=== PATIENT | female | born 2000 | race Caucasian/White ===

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

== ENCOUNTER 2021-07-11 14:51 | Emergency (ER) | payer OTHER ==
[~2021-07-11] VITALS: Ht 162.6 cm; Wt 47.6 kg
[2021-07-11] MEDS ORDERED: SYNTHROID50 MCG (16:02)
== END 2021-07-11 23:05 | disposition home or self-care (01) ==
LOC: ER 14:51
DX: R10.2 Pelvic and perineal pain (principal); O26.892 Other specified pregnancy related conditions, second trimester; Z3A.17 17 weeks gestation of pregnancy

== ENCOUNTER 2021-07-30 21:25 | Outpatient (CLI) | payer OTHER ==
[~2021-07-30 21:25] MED LIST changes: +SYNTHROID50 MCG
== END 2021-07-31 13:12 | disposition home or self-care (01) ==
LOC: OBS/DEL 21:25
PROVIDERS: ATTEND Obstetrics & Gynecology
DX: O26.892 Other specified pregnancy related conditions, second trimester (principal); R10.2 Pelvic and perineal pain; Z3A.20 20 weeks gestation of pregnancy

== ENCOUNTER 2021-10-12 02:04 | Inpatient (IN) | payer OTHER ==
[~2021-10-12] VITALS: Ht 162.6 cm; Wt 53.5 kg
[2021-10-12] MEDS ORDERED: PROGESTERO50 MG/1 ML IM (11:04)
== END 2021-10-27 20:08 | disposition home or self-care (01) | DRG 776 ==
LOC: OBS/DEL 02:04 → LDR 22:53 → OB/GYN 10-20 10:52
PROVIDERS: ADMIT Obstetrics & Gynecology; ATTEND Obstetrics & Gynecology
PROC: 4A1HXCZ Monitoring of Products of Conception, Cardiac Rate, External Approach (ICD-10-PCS; principal; 2021-10-12)
DX: O99.13 Other diseases of the blood and blood-forming organs and certain disorders involving the immune mechanism complicating the puerperium (principal); O34.33 Maternal care for cervical incompetence, third trimester; Z3A.30 30 weeks gestation of pregnancy; Z20.822 Contact with and (suspected) exposure to COVID-19; O26.893 Other specified pregnancy related conditions, third trimester; R10.2 Pelvic and perineal pain

== ENCOUNTER 2021-11-26 20:50 | Inpatient (IN) | payer OTHER ==
[~2021-11-26] VITALS: Ht 162.6 cm; Wt 57.6 kg
[~2021-11-26 20:50] MED LIST changes: +PROGESTERO50 MG/1 ML IM
[2021-11-26] MEDS ORDERED: SYNTHROID75 MCG (21:09)
== END 2021-12-03 13:26 | disposition home or self-care (01) | DRG 768 ==
LOC: OBS/DEL 20:50 → LDR 11-27 23:48 → OB/GYN 11-27 23:48
PROVIDERS: ADMIT Obstetrics & Gynecology; ATTEND Obstetrics & Gynecology
PROC: 4A1HXCZ Monitoring of Products of Conception, Cardiac Rate, External Approach (ICD-10-PCS; 2021-11-27)
PROC: 0UCC7ZZ Extirpation of Matter from Cervix, Via Natural or Artificial Opening (ICD-10-PCS; 2021-11-29)
PROC: BY4FZZZ Ultrasonography of Third Trimester, Single Fetus (ICD-10-PCS; 2021-11-29)
PROC: BU4CZZZ Ultrasonography of Uterus and Ovaries (ICD-10-PCS; 2021-11-29)
PROC: 10E0XZZ Delivery of Products of Conception, External Approach (ICD-10-PCS; principal; 2021-12-01)
DX: O34.33 Maternal care for cervical incompetence, third trimester (principal); Z37.0 Single live birth; O99.013 Anemia complicating pregnancy, third trimester; O26.843 Uterine size-date discrepancy, third trimester; O36.8130 Decreased fetal movements, third trimester, not applicable or unspecified; D64.89 Other specified anemias; O36.5930 Maternal care for other known or suspected poor fetal growth, third trimester, not applicable or unspecified; Z3A.37 37 weeks gestation of pregnancy; Z20.822 Contact with and (suspected) exposure to COVID-19

== ENCOUNTER 2024-08-15 08:42 | Outpatient (CLI) | payer OTHER ==
[~2024-08-15 08:42] MED LIST changes: +SYNTHROID75 MCG
== END 2024-08-15 08:45 | disposition home or self-care (01) ==
LOC: PRENATAL 08:42
PROVIDERS: ATTEND Obstetrics & Gynecology Maternal & Fetal Medicine
DX: O36.80X0 Pregnancy with inconclusive fetal viability, not applicable or unspecified (principal); Z36.82 Encounter for antenatal screening for nuchal translucency; Z14.8 Genetic carrier of other disease; O26.879 Cervical shortening, unspecified trimester; O34.30 Maternal care for cervical incompetence, unspecified trimester; Z3A.14 14 weeks gestation of pregnancy

== ENCOUNTER → 2024-09-11 10:39 | Outpatient (CLI) | payer OTHER | END | disposition home or self-care (01) | LOC: PRENATAL 10:39 | PROVIDERS: ATTEND Obstetrics & Gynecology Maternal & Fetal Medicine | DX: O26.849 Uterine size-date discrepancy, unspecified trimester (principal); O26.859 Spotting complicating pregnancy, unspecified trimester; O26.899 Other specified pregnancy related conditions, unspecified trimester; O34.30 Maternal care for cervical incompetence, unspecified trimester; Z3A.18 18 weeks gestation of pregnancy ==